=== PATIENT | female | born 1945 | race African-American/Black ===

== ENCOUNTER 2016-10-20 08:40 | Emergency (ER) | payer MEDICARE ==
[~2016-10-20] VITALS: Ht 162.6 cm; Wt 72.7 kg
[~2016-10-20 08:40] MED LIST: ALBU8.5H IH; ASPI-1061 PO; HYDR100T28 PO; METO100T3 PO; RANI150T7 PO; SIMV-260 PO
[2016-10-20] MEDS ORDERED: SODIUM CHLORIDE 0.9% 1,000 ML IV ONE (09:15)
[2016-10-20] MEDS ORDERED: ONDANSETRON HCL 4 MG/2 ML VIAL IVP ONE (09:15)
[2016-10-20] MEDS ORDERED: MORPHINE SULFATE 4 MG/ML SYRINGE IVP ONE (09:15)
[2016-10-20 09:30] LABS: CALCIUM, TOTAL 9.7 mg/dL (8.8-10.5); CREATININE 1.33 mg/dL (0.60-1.30); POTASSIUM 3.5 mmol/L (3.5-5.1)
[2016-10-20 09:36] LABS: ALBUMIN 3.6 g/dL (3.4-5.0); BILIRUBIN,TOTAL 0.4 mg/dL (0.1-1.0); TOTAL PROTEIN, SERUM 7.2 g/dL (6.4-8.2)
[2016-10-20 09:38] LABS: BASOPHILS % (AUTO) 1.1 % (0.0-2.0); EOSINOPHILS % (AUTO) 11.1 % (1.0-6.0); HEMATOCRIT 39.8 % (36-46); HEMOGLOBIN 13.3 g/dL (12.0-16.0); LYMPHOCYTES # (AUTO) 1.4 K/uL (1.0-4.8); LYMPHOCYTES % (AUTO) 38.8 % (22.0-44.0); MEAN CORPUSCULAR HEMOGLOBIN 28.5 pg (26.0-34.0); MEAN CORPUSCULAR HGB CONC 33.4 G/dL (31.0-37.0); MEAN CORPUSCULAR VOLUME 85 fL (80-100); MONOCYTES # (AUTO) 0.4 K/uL (0.1-1.0); MONOCYTES % (AUTO) 11.6 % (2.0-9.0); NEUTROPHILS # (AUTO) 1.4 K/uL (1.8-7.7); NEUTROPHILS % (AUTO) 37.4 % (40.0-70.0); PLATELET COUNT (AUTO) 143 K/uL (150-450); RED BLOOD CELL COUNT(AUTO) 4.67 MIL/uL (4.00-5.20); RED CELL DISTRIBUTION WIDTH 15.3 % (11.5-14.5); WHITE BLOOD COUNT (AUTO) 3.6 K/uL (4.5-11.0)
[2016-10-20 09:43] LABS: INR 1.1 (0.9-1.1); PROTHROMBIN TIME 11.6 SEC (9.4-11.6)
[2016-10-20] MEDS ORDERED: BARIUM SULFATE 0.1% SUSPENSION 450 ML BOTTLE PO ONE (10:30)
[2016-10-20] MEDS ORDERED: SODIUM CHLORIDE 0.9% 100 ML ONE (11:24)
[2016-10-20] MEDS ORDERED: IOVERSOL 320 MG/ML 100 ML VIAL ONE (11:24)
[2016-10-20 13:05] VITALS: BP 149/86
== END 2016-10-20 13:43 | disposition home or self-care (01) ==
LOC: EMS 08:41
DX: K57.32 Diverticulitis of large intestine without perforation or abscess without bleeding (principal); E78.00 Pure hypercholesterolemia, unspecified; J45.909 Unspecified asthma, uncomplicated; I10 Essential (primary) hypertension; Z79.82 Long term (current) use of aspirin
CPT/HCPCS: 36415; 74177; 80053; 84484; 85025; 85610; 96361; 96374; 96375; 99285; J2270; J2405; J7030; J7050; Q9967

== ENCOUNTER 2017-05-03 07:31 | Emergency (ER) | payer MEDICARE ==
[~2017-05-03] VITALS: Ht 162.6 cm; Wt 75.0 kg
[~2017-05-03 07:31] MED LIST changes: -ALBU8.5H IH; +ALBU8.5H8 IH; -ASPI-1061 PO; +ASPI81TA33 PO; -RANI150T7 PO
[2017-05-03] MEDS ORDERED: ALBUTEROL SULFATE 5 MG/ML 20 ML NEB SOLN [BULK] NEB ONE (08:00)
[2017-05-03] MEDS ORDERED: ALBUTEROL SULFATE HFA 90 MCG/PUFF 8 GM INHALER IH ONE (08:00)
[2017-05-03] MEDS ORDERED: IPRATROPIUM BROMIDE 0.5 MG/2.5 ML NEB SOLUTION NEB ONE (08:00)
[2017-05-03] MEDS ORDERED: PredniSONE 20 MG TABLET PO ONE (08:00)
[2017-05-03 09:13] VITALS: BP 136/70
== END 2017-05-03 09:24 | disposition home or self-care (01) ==
LOC: EMS 07:32
DX: J45.901 Unspecified asthma with (acute) exacerbation (principal); J06.9 Acute upper respiratory infection, unspecified; E78.00 Pure hypercholesterolemia, unspecified; I10 Essential (primary) hypertension; Z79.82 Long term (current) use of aspirin
CPT/HCPCS: 94644; 99285; J7512; J3535

== ENCOUNTER 2017-08-30 08:50 | Emergency (ER) | payer MEDICARE ==
[~2017-08-30] VITALS: Ht 162.6 cm; Wt 76.8 kg
[~2017-08-30 08:50] MED LIST changes: -ASPI81TA33 PO; +ASPI81TA87 PO
[2017-08-30] MEDS ORDERED: ALBUTEROL SULFATE 5 MG/ML 20 ML NEB SOLN [BULK] NEB ONE (09:30)
[2017-08-30] MEDS ORDERED: IPRATROPIUM BROMIDE 0.5 MG/2.5 ML NEB SOLUTION NEB ONE (09:30)
[2017-08-30] MEDS ORDERED: PredniSONE 20 MG TABLET PO ONE (10:45)
[2017-08-30 11:33] VITALS: BP 161/113
== END 2017-08-30 11:50 | disposition home or self-care (01) ==
LOC: EMS 08:51
DX: J45.901 Unspecified asthma with (acute) exacerbation (principal); E78.00 Pure hypercholesterolemia, unspecified; I10 Essential (primary) hypertension; Z76.0 Encounter for issue of repeat prescription
CPT/HCPCS: 71045; 93005; 94644; 99285; J7512

== ENCOUNTER 2021-07-08 15:20 | Emergency (ER) | payer MEDICARE ==
[~2021-07-08] VITALS: Ht 162.6 cm; Wt 77.3 kg
[2021-07-08] MEDS ORDERED: GABA-1216 PO (15:39)
[2021-07-08] MEDS ORDERED: NIFE-39 PO (15:39)
[2021-07-08] MEDS ORDERED: METH-386 PO (15:39)
[2021-07-08] MEDS ORDERED: ASCO500 PO (15:39)
[2021-07-08] MEDS ORDERED: LISI-892 PO (15:39)
[2021-07-08] MEDS ORDERED: CALC-877 PO (15:39)
[2021-07-08] MEDS ORDERED: ALEN70TA65 PO (15:39)
[2021-07-08] MEDS ORDERED: ROSU10TA72 PO (15:39)
[2021-07-08] MEDS ORDERED: EZET10TA57 PO (15:39)
[2021-07-08] MEDS ORDERED: CHOL500043 PO (15:39)
[2021-07-08] MEDS ORDERED: SODIUM CHLORIDE 0.9% 1,000 ML IV ONE (16:00)
[2021-07-08 16:21] LABS: BASOPHILS % (AUTO) 1.3 % (0.0-2.0); EOSINOPHILS % (AUTO) 5.7 % (1.0-6.0); LYMPHOCYTES # (AUTO) 1.8 K/uL (1.0-4.8); LYMPHOCYTES % (AUTO) 37.5 % (22.0-44.0); MEAN CORPUSCULAR HEMOGLOBIN 29.1 pg (26.0-34.0); MEAN CORPUSCULAR HGB CONC 33.3 G/dL (31.0-37.0); MEAN CORPUSCULAR VOLUME 87 fL (80-100); MONOCYTES # (AUTO) 0.5 K/uL (0.1-1.0); NEUTROPHILS # (AUTO) 2.2 K/uL (1.8-7.7); NEUTROPHILS % (AUTO) 45.5 % (40.0-70.0); PLATELET COUNT (AUTO) 165 K/uL (150-450); RED BLOOD CELL COUNT(AUTO) 4.81 MIL/uL (4.00-5.20); RED CELL DISTRIBUTION WIDTH 14.9 % (11.5-14.5)
[2021-07-08 16:32] LABS: CALCIUM, TOTAL 9.4 mg/dL (8.8-10.5); CREATININE 1.2 mg/dL (0.60-1.30); POTASSIUM 3.4 mmol/L (3.5-5.1)
[2021-07-08 16:37] LABS: ALBUMIN 3.8 g/dL (3.4-5.0); BILIRUBIN,TOTAL 0.3 mg/dL (0.1-1.0)
[2021-07-08 17:49] LABS: APPEARANCE,URINE CLEAR (CLEAR); BILIRUBIN,URINE NEGATIVE (NEGATIVE); GLUCOSE, URINE (UA) NEGATIVE (NEGATIVE); KETONES,URINE NEGATIVE (NEGATIVE); LEUKOCYTE ESTERASE ,URINE LARGE (NEGATIVE); NITRATE,URINE NEGATIVE (NEGATIVE); OCCULT BLOOD,URINE NEGATIVE (NEGATIVE); PH,URINE 7.5 (5.0-8.0); PROTEIN,URINE NEGATIVE (NEGATIVE); SPECIFIC GRAVITIY, URINE 1.005 (1.003-1.030); UROBILINOGEN,URINE <=1.0 mg/dL (<=1.0)
[2021-07-08 18:01] LABS: BACTERIA,URINE Rare /HPF (None Seen); RBC,URINE 0-2 /HPF (0-2); SQUAMOUS EPITHELIAL CELL,UR Few /LPF (None Seen)
[2021-07-08] MEDS ORDERED: CEPH-558 PO (18:05)
[2021-07-08] MEDS ORDERED: CEPHALEXIN MONOHYDRATE 500 MG CAPSULE PO ONE (18:15)
[2021-07-08] MEDS ORDERED: MEMA5TAB42 PO (18:36)
[2021-07-08] MEDS ORDERED: METO50 PO (18:36)
[2021-07-08] MEDS ORDERED: NIFE-79 PO (18:36)
[2021-07-08] MEDS ORDERED: LISI-894 PO (18:36)
[2021-07-08 20:23] VITALS: BP 179/99
== END 2021-07-08 20:45 | disposition home or self-care (01) ==
LOC: EMS 15:20
DX: R42 Dizziness and giddiness (principal); N39.0 Urinary tract infection, site not specified; I10 Essential (primary) hypertension; E78.00 Pure hypercholesterolemia, unspecified; J45.909 Unspecified asthma, uncomplicated; Z79.899 Other long term (current) drug therapy
CPT/HCPCS: 36415; 70450; 80053; 81001; 85025; 87086; 96360; 96361; 99284; J7030

== ENCOUNTER 2023-06-26 10:31 | Emergency (ER) | payer MEDICARE ==
[~2023-06-26] VITALS: Ht 162.6 cm; Wt 85.9 kg
[~2023-06-26 10:31] MED LIST changes: +ALEN70TA65 PO; +ASCO500 PO; -ASPI81TA87 PO; +CALC-877 PO; +CEPH-558 PO; +CHOL500043 PO; +EZET10TA57 PO; +GABA-1216 PO; -HYDR100T28 PO; +LISI-894 PO; +MEMA5TAB16 PO; +METH-386 PO; -METO100T3 PO; +METO50 PO; +NIFE-79 PO; +ROSU10TA72 PO; -SIMV-260 PO
[2023-06-26 10:36] VITALS: TEMP 98.4
[2023-06-26] MEDS ORDERED: LOSA100T59 PO (10:42)
[2023-06-26] MEDS ORDERED: PREG100C56 PO (10:42)
[2023-06-26 11:25] LABS: BASOPHILS % (AUTO) 0.6 % (0.0-2.0); EOSINOPHILS % (AUTO) 0.9 % (1.0-6.0); HEMATOCRIT 44.2 % (36-46); HEMOGLOBIN 14.3 g/dL (12.0-16.0); LYMPHOCYTES % (AUTO) 17.4 % (22.0-44.0); MEAN CORPUSCULAR HEMOGLOBIN 28.2 pg (26.0-34.0); MEAN CORPUSCULAR HGB CONC 32.4 G/dL (31.0-37.0); MEAN CORPUSCULAR VOLUME 87 fL (80-100); MONOCYTES # (AUTO) 0.9 K/uL (0.1-1.0); MONOCYTES % (AUTO) 16.3 % (2.0-9.0); NEUTROPHILS # (AUTO) 3.6 K/uL (1.8-7.7); NEUTROPHILS % (AUTO) 64.8 % (40.0-70.0); PLATELET COUNT (AUTO) 142 K/uL (150-450); RED BLOOD CELL COUNT(AUTO) 5.06 MIL/uL (4.00-5.20); RED CELL DISTRIBUTION WIDTH 15.5 % (11.5-14.5); WHITE BLOOD COUNT (AUTO) 5.5 K/uL (4.5-11.0)
[2023-06-26 11:36] LABS: CALCIUM, TOTAL 9.2 mg/dL (8.8-10.5); CREATININE 1.26 mg/dL (0.60-1.30); POTASSIUM 3.5 mmol/L (3.5-5.1)
[2023-06-26 11:41] LABS: TROPONIN I-HIGH SENSITIVITY 22 ng/L (<51)
[2023-06-26 11:42] LABS: ALBUMIN 3.3 g/dL (3.4-5.0); BILIRUBIN,TOTAL 0.4 mg/dL (0.1-1.0); TOTAL PROTEIN, SERUM 8.1 g/dL (6.4-8.2)
[2023-06-26] MEDS: SODIUM CHLORIDE 0.9% 1,000 ML IV ONE (14:16)
[2023-06-26] MEDS: ONDANSETRON HCL 4 MG/2 ML VIAL IVP ONE (14:16)
[2023-06-26] MEDS: MORPHINE SULFATE 4 MG/ML SYRINGE IVP ONE (14:17)
[2023-06-26] MEDS: KETOROLAC TROMETHAMINE 30 MG/ML VIAL IVP ONE (14:17)
[2023-06-26] MEDS: PIPERACILLIN/TAZO 3.375 GM/D5W 50 ML IV ONE (16:17)
[2023-06-26 16:38] LABS: COVID AG,FIA SOURCE NASAL SWAB
[2023-06-26 16:57] LABS: SARS-COV2 (COVID) ANTIGEN,FIA Negative (Negative)
[2023-06-26 17:18] VITALS: BP 173/84; PULSE 94; RESP 16
== END 2023-06-26 17:55 | disposition short-term general hospital (02) ==
LOC: EMS 10:41
DX: R10.84 Generalized abdominal pain (principal); R53.1 Weakness; R11.2 Nausea with vomiting, unspecified; M19.90 Unspecified osteoarthritis, unspecified site; J45.909 Unspecified asthma, uncomplicated; E78.00 Pure hypercholesterolemia, unspecified; I10 Essential (primary) hypertension; Z20.822 Contact with and (suspected) exposure to COVID-19
CPT/HCPCS: 99285; 74176; 96365; 96375; 96361; 87426; 80053; 83690; 84484; 85025; 36415; 93005; J1885; J2270; J2405; J2543; J7030